=== PATIENT | male | born 2005 | race Caucasian/White ===

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

== ENCOUNTER 2024-10-07 15:01 | Emergency (ER) | payer SELFPAY ==
[2024-10-07 15:02] VITALS: BP 148/85; PULSE 78; RESP 20; TEMP 37.1; O2SAT 97
[2024-10-07 15:06] VITALS: BP 148/85; PULSE 78; RESP 20; TEMP 37.1; O2SAT 97
--- NOTE | 2024-10-07 15:26 | ED.GENADUL_ITS ---
Discharge Plan Disposition Patient Disposition: Home Discharge Details Clinical Impression: Abdominal pain, acute, epigastric Primary Care Provider: Unknown,Unknown ED Provider: Sergio Boyd Home Meds and New Rx's Prescriptions: New ondansetron 4 mg tablet,disintegrating 4 mg PO Q6H PRN (Reason: nausea and vomiting) Qty: 30 0RF pantoprazole [Protonix] 40 mg tablet,delayed release (DR/EC) 40 mg PO DAILY 14 Days Qty: 14 0RF Discharge Instructions Additional Instructions: * Lab work does not indicate any signs of ongoing GI bleed, pancreatitis or abnormalities with your gallbladder or liver * please take Zofran as needed for nausea and take the Protonix medication for the next 2 weeks as prescribed * Keep your diet simple until your symptoms have resolved and then advance slowly as tolerated. * Follow-up with your PCP as needed. Return to the emergency department if you have any severe pain, fever or vomiting not tolerating anything by mouth. HPI General Date/Time Provider Initiated Documentation: 10/07/24 15:06 . Limitations to Documentation: no limitations . Information obtained by: patient . HPI Narrative: 19-year-old gentleman without significant past medical history presents for evaluation of abdominal pain and discolored stool. He reports that he has had 2 days of abdominal pain. He localizes the pain to the top of his abdomen. Does not radiate. The intermittent pain. He has had a decreased interest in eating or drinking, but has not had any nausea or vomiting. Denies any fever. He reports that he has been taking some Pepto-Bismol for symptom relief. He reports that yesterday and today he noted that his stool was slightly loose and black in color. He has never had surgery in his abdomen before and denies any history of pain similar to this. Related Data Home Medications ?Medication ?Instructions ?Recorded ?Confirmed ondansetron 4 mg disintegrating 4 mg PO Q6H PRN nausea and 10/07/24 tablet vomiting #30 tabs pantoprazole 40 mg tablet,delayed 40 mg PO DAILY 2 wee ks #14 tabs 10/07/24 release (Protonix) Previous Rx's ?Medication ?Instructions ?Recorded ondansetron 4 mg disintegrating 4 mg PO Q6H PRN nausea and 10/07/24 tablet vomiting #30 tabs pantoprazole 40 mg tablet,delayed 40 mg PO DAILY 2 wee ks #14 tabs 10/07/24 release (Protonix) Allergies Allergy/AdvReac Type Severity Reaction Status Date / Time PEPPERMINT OIL Allergy Mild Other (See Uncoded 10/07/24 15:07 Comment) General Stated Complaint: Abd Prob ELIDA: 3 Exam Narrative Exam Narrative: Review of Systems: All systems reviewed & are unremarkable except as noted in HPI and below Well-developed, no acute distress NCAT PERRL, normal conjunctiva RRR no murmur Unlabored respiratory effort clear bilaterally Nondistended abdomen soft, nontender Extremities w/o edema Course Vital Signs Vital signs: Vital Signs Temperature 37.1 C 10/07/24 15:02 Pulse 78 10/07/24 15:02 Respiratory Rate 20 10/07/24 15:02 Blood Pressure 148/85 H 10/07/24 15:02 Pulse Oximetry 97 10/07/24 15:02 Temperature 37.1 C 10/07/24 15:06 Pulse 78 10/07/24 15:06 Respiratory Rate 20 10/07/24 15:06 Blood Pressure 148/85 H 10/07/24 15:06 Blood Pressure Position Sitting 10/07/24 15:06 Pulse Oximetry 97 10/07/24 15:06 Oxygen Delivery Method Room Air 10/07/24 15:06 Oxygen Flow Rate 0 10/07/24 15:06 Medical Decision Making Emergent evaluation of epigastric abdominal pain associated with discolored stool. Patient does report that he smokes marijuana, but no tobacco, no alcohol use though he did take a shot of alcohol yesterday. He has not had any vomiting that may have resulted in a Komal-Grace tear. He has never had any history of GI bleeding and I suspect that the black stool is likely secondary to his Pepto-Bismol use. On examination he has a benign nontender abdomen and I do not suspect acute cholecystitis based on his examination. He does have an increased risk factor for this secondary to his obesity. He attempted eating ch ips and pizza today but just did not have much of an appetite, again no vomiting. Will check lab work and give IV medications for symptom relief and monitor for continued signs of a GI bleeding. If the patient does have a bowel movement, will send for stool studies. At this time based on the patient's clinical examination and vital signs, I do not feel that he needs emergent CT imaging however if his lab work is abnormal, I will send for CT. Lab work reviewed. Mild leukocytosis at 14 though this does not seems specific for an infectious etiology. Hemoglobin is stable, no concerns for acute blood loss anemia. Lactic acid is not elevated and electrolytes are also unremarkable. There is no hearing and liver function and lipase elevated. Follow-up with theHarinder Cesarc ongoing GI bleeding. Patient feels better after medications given in the emergency department and was able to tolerate an oral challenge. At this time he is discharged home to follow up with PCP as needed and strict return precautions were advised to the emergency department. He was prescribed Zofran and Protonix to take. PFSH All Active Problems (Updated 10/07/24 @ 16:55 by Sergio Boyd MD) Abdominal pain, acute, epigastric (Acute) Ear pain, left (Acute) Social History Smoking/Tobacco Use Status: Never Smoking risk assessment performed?: Yes Alcohol Intake: never Drug use: Never Substance use type: does not use Do you feel safe at home: Yes Do you feel safe in your relationship?: Yes PAWSS Have you Been Recently Intoxicated or Drunk Within the Last 30 days?: No Have you Ever Experienced Previous Episodes of Alcohol Withdrawal?: No Have you ever Experienced Withdrawal Seizures?: No Have you ever Experienced Delirium Tremens(DT)s?: No Have you ever undergone Alcohol Rehabilitation Treatment (i.e, inpt ot outpatient treatment programs)?: No Have you ever Experienced Blackouts?: No Have you ever Combined Alcohol with other Downers within the last 90 days?: No Have you ever Combined Alcohol with any other Substance of Abuse during the last 90 days?: No Positive Blood Alcohol level on Presentation? [PCS.BAL]: No Evidence of Increased Autonomic Activity (i.e. HR>120, tremor, sweating, agitation, nausea)?: No Result: 0
[2024-10-07 15:37] LABS: Lactate 0.6 mmol/L (<or=2.0)
[2024-10-07] MEDS: Pantoprazole 40 MG VIAL IVP (15:38)
[2024-10-07 15:40] LABS: Abs Immature Grans 0.05 10^3/uL (0.0-0.06); Absolute Basophil Count 0.04 10^3/uL (0.0-0.2); Absolute Eosinophil Count 0.09 10^3/uL (0.0-0.7); Absolute Lymphocyte Count 2.31 10^3/uL (1.2-3.4); Basophils % 0.3 %; Eosinophils % 0.6 %; HCT 44.7 % (40.0-50.0); HGB 15.4 g/dL (13.5-17.5); Immature Grans % 0.3 %; Lymphocytes % 15.7 %; MCH 29.9 pg (27.0-33.0); MCHC 34.5 % (32.0-36.0); MCV 87 fL (80-95); MPV 9.1 fL (8.0-11.0); Monocytes % 7.1 %; Platelet Count 296 10^3/uL (130-400); RBC 5.15 10^6/uL (4.36-5.78); RDW 12.9 % (11.8-14.1)
[2024-10-07 15:44] LABS: Absolute Monocyte Count 1.04 10^3/uL (0.1-0.8); Absolute Neutrophil Count 11.17 10^3/uL (1.2-6.7)
[2024-10-07 15:53] LABS: INR 1.2 (0.9-1.1); Prothrombin Time 12.1 sec (9.1-11.1)
[2024-10-07 15:54] LABS: ALT 21 U/L (16-63); AST 11 U/L (15-37); Albumin 3.9 g/dL (3.4-5.0); Alkaline Phosphatase 89 U/L (46-116); Anion Gap 8.3 mmol/L (3-11); BUN 11 mg/dL (7-18); CO2 28.7 mmol/L (21.0-32.0); CREATININE 0.7 mg/dL (0.70-1.30); Chloride 103 mmol/L (98-107); Estimated GFR 135.28 (mL/min/1.73m2); Glucose 103 mg/dL (74-106); Magnesium 1.8 mg/dL (1.8-2.4); Potassium 3.6 mmol/L (3.5-5.1); Sodium 140 mmol/L (136-145); Total Protein 7.7 g/dL (6.4-8.2)
[2024-10-07] MEDS: Normal Saline 1,000 ML 1000 ML IV (16:24)
[2024-10-07 16:25] VITALS: BP 146/77; PULSE 74; RESP 16; O2SAT 99
[2024-10-07 16:27] LABS: Lipase 14 U/L (<78)
== END 2024-10-07 17:11 | disposition home or self-care (01) ==
PROVIDERS: Emergency Provider Emergency Medicine
DX: R10.13 Epigastric pain (principal)
CPT/HCPCS: 36415; 80053; 83690; 96374; 99284; 83605; 83735; 85025; 85610; J2470